=== PATIENT | female | born 1945 | race Caucasian/White ===

== ENCOUNTER 2016-08-14 07:37 | Inpatient (IN) ==
--- NOTE | 2016-08-14 08:03 | Emergency Department Note ---
Osmin Serrano Brooke, am scribing for, and in the presence of, Farhad Mccoy MD 07:58 . Nadine Serrano James D, MD, personally performed the services described in this documentation, ascribed by Louise Solorio in my presence, and it is both accurate and complete 802 . Arrival - Arrival Chief Complaint: Shortness of Breath Stated Complaint: SOB ED Nursing Triage Note: PT TRANSFERED FROM [facility] FOR EVALAUATION OF SOB. PT HAS DX NEW ONSET CHF. 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 Mode of Arrival: Stretcher Limitations: No Limitations Source: Patient, EMS, RN Notes Reviewed Time Seen by Provider: 08/14/16 07:51 - History of Present Illness HPI Narrative: Patient is a 71 year old female brought into the ED by EMS, From [facility] , for further evaluation of shortness of breath. Patient says the shortness of breath started last night. She says she had not gone to sleep, yet, when it started. She went to [facility] ED and says the doctor told her "he thought I might have CHF." Patient was given fluid medication and she says she now feels better. Patient also complains of having a cough and wheezing. She says she has had edema in her feet, with left being worse, for the past "two to three weeks." She had an UT "two to three years ago" and was treated by Dr. Ramirez. She does not have home oxygen. She also has PMHx of HTN, and dyslipidemia. Patient is a smoker and says she smokes a pack to two packs of cigarettes a day. Allergies/Adverse Reactions: Allergies Allergy/AdvReac Type Severity Reaction Status Date / Time levofloxacin Allergy ITCHING Unverified 08/14/16 07:44 Home Medications: Home Medications Medication Instructions Recorded Confirmed Type Aspirin Tab 325 mg PO DAILY 08/09/14 08/14/16 History Carvedilol [Coreg] 3.125 mg PO BID 08/09/14 08/14/16 History Clopidogrel [Plavix] 75 mg PO DAILY 08/09/14 08/14/16 History Furosemide Tab [Lasix Tab] 40 mg PO BID 08/09/14 08/14/16 History Lisinopril 10 mg PO DAILY 08/09/14 08/14/16 History Magnesium Oxide 400 mg PO BID 08/09/14 08/14/16 History Pantoprazole Tab [Protonix Tab] 40 mg PO DAILY 08/09/14 08/14/16 History Simvastatin 80 mg PO QPM 08/09/14 08/14/16 History metFORMIN [Glucophage] 1,000 mg PO BID 08/09/14 08/14/16 History Tramadol HCl/Acetaminophen 1 each PO Q8H PRN 08/14/16 08/14/16 History [Tramadol-Acetaminophn 37.5-325] Review of System - Review of System 12 point system: reviewed and no additional remarkable complaints except as stated - Review of System Constitutional: Absent: fever Respiratory: Present: cough, wheezing, other (shortness of breath). Absent: respiratory distress Cardiovascular: Present: edema (bilateral feet- left worse) Skin: Absent: rash Medical,Surgical,& Family Hx - Medical History Cardio: History of: CHF, Hypertension, UT Endocrine: History of: Dyslipidemia - Social History Smoking Status: Unknown if ever smoked Exam Vital Signs: Vital Signs Temperature 97.2 F L 08/14/16 08:00 Pulse Rate 72 08/14/16 08:30 Respiratory Rate 20 08/14/16 08:30 Blood Pressure 107/77 08/14/16 08:30 O2 Sat by Pulse Oximetry 97 08/14/16 08:30 GENERAL: This is a well-nourished well-developed white female in no apparent distress. VITAL SIGNS: Reviewed HEENT: Head is atraumatic and normocephalic. Pupils are equal round react to light. Extraocular movements are intact. Oropharynx is benign with moist mucous membranes. NECK: Neck is soft and supple without tenderness. There are no masses. There is no lymphadenopathy. LUNGS: Scattered expiratory and inspiratory wheezes. Chest rises symmetrically. There is no chest wall tenderness. CV: Heart is regular rate and rhythm without murmurs rubs or gallops. ABDOMEN: Abdomen is soft, nontender to palpation. There are no abdominal abnormal masses palpated. There is no organomegaly. Bowel sounds are present and active. SKIN: Skin is warm and dry. No rash. EXTREMITIES: Patient has full range of motion without tenderness. There is no pedal edema. NEUROLOGIC: Awake alert and oriented 4. Cranial nerves II through XII are grossly intact. Motor is 5 over 5 in all extremities bilaterally. Course - Consultations Consultation #1: Discussed with hospitalist. Patient will be admitted to their service. Time: 10:28 Results - Labs Lab Results: I have reviewed the patients labs Labs: Lab performed at [facility] reviewed by me. Laboratory Tests 08/14/16 08:48 Troponin I < 0.015 - EKG EKG results: interpreted by ERMD - Impressions EKG: Normal sinus rhythm with a rate of 76, nonspecific intraventricular conduction delay. Nonspecific ST-T wave changes. - Diagnostic Findings Procedure: Chest x-ray: image reviewed by me (Increased pulmonary markings bilaterally with fluid in the fissure.) Disposition Clinical Impression: Congestive heart failure, Nicotine addiction Case discussed with: patient Disposition: Still a Patient Condition: Stable Time of Disposition: 10:28
--- NOTE | 2016-08-14 09:16 | EKG Report ---
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
--- NOTE | 2016-08-14 09:19 | XRay Report ---
XR chest 2V Date: 08/14/2016 8:31 AM History: Shortness of breath Comparison: 09/13/2014 Technique: PA and lateral chest Findings: The heart is minimally enlarged with diffuse arterial calcifications. The lungs are overexpanded. Progressive parenchymal findings with Red B lines. Small pleural effusions with calcified granulomata. The pulmonary vasculature is more prominent with degenerative changes. Prior cholecystectomy. Impression: COPD with chronic scarring. Mild CHF with subsegmental atelectasis and small pleural effusions. Diffuse arterial calcifications. PROCEDURE INTERPRETED AT [facility] DEPARTMENT OF RADIOLOGY Final Report Signed by: Dr. Samantha Portillo
--- NOTE | 2016-08-14 11:02 | Hospitalist History & Physical ---
<Nikita Guerra - Last Filed: 08/14/16 11:29> Assessment and Plan (1) Congestive heart failure Status: Acute Assessment and plan: Chest x-ray suggested fluid accumulation; Lasix was given; her symptoms improved. We will obtain BNP now; may repeat lasix in AM if warranted. Current Visit: Yes Qualifiers: Congestive heart failure type: unspecified congestive heart failure type Congestive heart failure chronicity: acute Qualified Code(s): I50.9 - Heart failure, unspecified (2) Nicotine addiction Status: Acute Assessment and plan: The patient is a current smoker and verbalizes no intent to stop nor wants discuss it. Current Visit: Yes (3) Acute exacerbation of chronic obstructive airways disease Status: Acute Assessment and plan: We will start inhaled bronchodialators and systemic corticosteriods; monitor. Current Visit: No History of Present Illness Chief complaint: shortness of breath History of present illness: This is frail chronically-ill 71 year old female that presented to the ED at [facility] as a transfer from [facility] in [place] for evaluation of shortness of breath. The patient has a very complex medical history significant for congestive heart failure, chronic obstructive pulmonary disease, nicotine addiction, myocardial infarction, multiple cerebral vascular accidents, chronic urinary tract infection, GERD, asthma, and dyslipidemia. Apparently, the patient presented to the ED at [facility] for the above complaints on this morning which started on last night. She was given Lasix there and she reports that her symptoms improved. She reports that she was told that she "might have CHF" and was transferred here. In addition, the patient reported coughing, wheezing, and bilateral lower extremity edema for over one week. The patient reports that she is a current smoker of 2 packs of cigarettes daily with no plans to stop. Cardiac enzymes were obtained which reported troponin level of <0.015. Electrocardiogram reported normal sinus rhythm with a rate of 76, nonspecific intraventricular conduction delay and nonspecific ST-T wave changes. Chest radiograph revealed increased pulmonary markings bilaterally with fluid in the fissure. After brief discussion with both Dr. Mccoy and Dr. Murillo, the patient will be admitted to the hospitalist service for continuation of care. Home Medications Medication Instructions Recorded Confirmed Type Aspirin Tab 325 mg PO DAILY 08/09/14 08/14/16 History Carvedilol [Coreg] 3.125 mg PO BID 08/09/14 08/14/16 History Clopidogrel [Plavix] 75 mg PO DAILY 08/09/14 08/14/16 History Furosemide Tab [Lasix Tab] 40 mg PO BID 08/09/14 08/14/16 History Lisinopril 10 mg PO DAILY 08/09/14 08/14/16 History Magnesium Oxide 400 mg PO BID 08/09/14 08/14/16 History Pantoprazole Tab [Protonix Tab] 40 mg PO DAILY 08/09/14 08/14/16 History Simvastatin 80 mg PO QPM 08/09/14 08/14/16 History metFORMIN [Glucophage] 1,000 mg PO BID 08/09/14 08/14/16 History Tramadol HCl/Acetaminophen 1 each PO Q8H PRN 08/14/16 08/14/16 History [Tramadol-Acetaminophn 37.5-325] Allergies Allergy/AdvReac Type Severity Reaction Status Date / Time levofloxacin Allergy ITCHING Unverified 08/14/16 07:44 Medical,Surgical,& Family Hx - Medical History Cardio: History of: CHF, Hypertension, LA Neurology: History of: Cerebrovascular Accident (x3) Endocrine: History of: Diabetes Mellitus (NIDDM), Dyslipidemia Respiratory: History of: Asthma, COPD Genitourinary: History of: Recurring Urinary Tract Infections Gastrointestinal: History of: GERD - Surgical History Abdominal Surgeries: Surgical HX of: Cholecystectomy Reproductive Surgeries: Surgical HX of;: Dilation and Curettage, Hysterectomy Orthopedic Surgeries: Surgical HX of;: Orthopedic Surgery (right leg broken 1981 ) - Family History Family History: Reports;: Family Diabetes (son daughter), Family Hypertension ( daughter) - Social History Smoking Status: Unknown if ever smoked Exam - Constitutional Vitals: Period Temp Pulse Resp BP Sys/San Pulse Ox Last 24 Hr 97.1 F-97.2 F 67-78 16-20 95-107/58-77 90-98 <Jose Murillo - Last Filed: 08/14/16 12:00> Assessment and Plan (1) Acute exacerbation of chronic obstructive airways disease Status: Acute Assessment and plan: Impression: 1. COPD with acute exacerbation 2. Possible new onset congestive heart failure. Chest x-ray is consistent with this. She might have had a silent infarct, so we will monitor enzymes to rule this out. 3. Type II DM 4. Hypertension 5. Generalized atherosclerosis with prior LA and cerebral infarction. Plan: As above. Rule out LA with enzymes. Echocardiogram to assess left ventricular systolic function. She may need medication revision. Bronchodilators, oxygen, and IV steroids for the COPD. Will watch glucoses closely while she is on IV steroids. This note represents a shared visit with the nurse practitioner. I have seen the patient, and performed the critical elements of the history and examination as noted above. I agree with the assessment and plan, as entered by the nurse practitioner, except as described above. This note was completed using [employer] voice recognition software. There may be returned goods inspector errors as a result. Current Visit: No History of Present Illness History of present illness: Ms. Santos is a 71 year old female The patient reports a history of atherosclerosis manifest as several cerebral infarctions and a myocardial infarction. She says that she has not had any stents placed, and was never offered surgical intervention for her coronary disease. She also has been told that she has COPD, but is on no medication for this. She has been hypertensive and diabetic. She reports that her blood sugars at home are usually much less than 200. She says that she was in her usual state of poor health until the evening of admission, when she noted the sudden onset of dyspnea without any associated cough, sputum production, or chest discomfort. She presented to her local emergency department, and apparently a chest x-ray showed possible congestive heart failure. She was referred to us for cardiac evaluation. The patient specifically denies any prior diagnosis of congestive heart failure. She continues to smoke at least a pack of cigarettes every day. Exam - Constitutional Vitals: Period Temp Pulse Resp BP Sys/San Pulse Ox Last 24 Hr 97.1 F-97.2 F 67-78 16-20 95-107/51-77 90-98 Vital signs are described above. Heart is regular with distant tones. I do not hear murmur or gallop. Examination of lungs reveal a prolonged expiratory phase with expiratory wheezing. Abdomen is soft without any mass or tenderness. She is awake and conversant, and moves all 4 extremities.
[2016-08-14] MEDS ORDERED: DEXTROSE 50% 25 GM/50 ML VIAL IV PRN (13:16)
[2016-08-14] MEDS ORDERED: GLUCAGON 1 MG VIAL IM PRN (13:16)
[2016-08-14] MEDS: methylPREDNISolone SOD SUC 40 MG/1 ML VIAL IV SCH (13:56)
[2016-08-14] MEDS: ALBUTEROL/IPRATROPIUM 3 ML NEB RESP TX SCH ×2 (14:20→18:56)
[2016-08-14] MEDS: INSULIN REGULAR 100 UNIT/ML SUBCUT SCH ×2 (16:37→20:59)
[2016-08-14] MEDS: SIMVASTATIN 80 MG TABLET PO SCH (18:07)
[2016-08-14] MEDS: metFORMIN 500 MG TABLET PO SCH (20:59)
[2016-08-14] MEDS: CARVEDILOL 3.125 MG TABLET PO SCH (20:59)
[2016-08-14] MEDS: MAGNESIUM OXIDE 400 MG TABLET PO SCH (20:59)
[2016-08-15] MEDS: ALBUTEROL/IPRATROPIUM 3 ML NEB RESP TX SCH ×4 (00:57→18:47)
[2016-08-15] MEDS: methylPREDNISolone SOD SUC 40 MG/1 ML VIAL IV SCH ×2 (01:46→17:22)
[2016-08-15 06:22] LABS: Basophils % 0.1 % (0.0-0.8); Hematocrit 38.5 VOL% (35.7-47.0); Hemoglobin 12.6 GM/DL (12.0-16.0); Immature Granulocytes % 0.5 %; Immature Granulocytes Absolute 0.04 #; Lymphocytes # 0.9 10*3/uL (1.4-4.0); Mean Corpuscular HGB Conc 32.7 GM/DL (32-36); Mean Corpuscular Hemoglobin 30 PG (27-34); Mean Corpuscular Volume 90.6 FL (87-102); Mean Platelet Volume 10.2 FL (9.6-12.0); Monocytes # 0.1 10*3/uL (0.11-0.8); Monocytes % 1.3 % (1.7-12.7); Neutrophils # 6.8 10*3/uL (1.4-7.4); Neutrophils % 87.1 % (38.7-73.9); Platelet Count 233 T/CUMM (130-400); Red Blood Count 4.25 MC/CUMM (3.8-5.5); Red Cell Distribution Width 13.1 % (9.3-17.3); White Blood Count 7.9 T/CUMM (4-12)
--- NOTE | 2016-08-15 06:41 | XRay Report ---
XR chest 1V portable Indication: COPD Comparison: Chest x-ray 08/14/2016 Technique: Portable AP chest was performed. Findings: The heart size appears within normal limits. Pulmonary vasculature demonstrates no specific abnormality. Hilar structures demonstrate fairly symmetric appearance. The lungs have changed little in appearance since comparison study. A faint changed and may be some interval decrease in linear interstitial markings within the periphery of the lower lungs. Calcified granuloma is suggested within the left lung base and partially calcified left hilar lymph node is suggested. Bones and soft tissues demonstrate no evidence of acute pathology. Impression: 1. Little overall change in the chest is suggested. There may be interval partial clearing of interstitial pulmonary edema within the lung bases. 08/15/2016 6:37 AM PROCEDURE INTERPRETED AT [facility] DEPARTMENT OF RADIOLOGY Final Report Signed by: Dr. Gilmer Matias
[2016-08-15 06:53] LABS: Albumin 3.1 G/DL (3.4-5.0); Bilirubin,Total 0.6 MG/DL (0.2-1.0); Calcium 8.8 MG/DL (8.5-10.1); Magnesium 2.7 MG/DL (1.8-2.4); Osmolality,Calculated 288.8 MOS/KG (273-304); Phosphorous 3.4 MG/DL (2.5-4.9); Potassium 3.7 MMOL/L (3.5-5.1); Total Protein 6.6 G/DL (6.4-8.3)
[2016-08-15] MEDS: CARVEDILOL 3.125 MG TABLET PO SCH ×2 (08:52→20:49)
[2016-08-15] MEDS: MAGNESIUM OXIDE 400 MG TABLET PO SCH ×2 (08:52→20:49)
[2016-08-15] MEDS: PANTOPRAZOLE 40 MG TABLET PO SCH (08:52)
[2016-08-15] MEDS: ASPIRIN 325 MG TABLET PO SCH (08:52)
[2016-08-15] MEDS: INSULIN REGULAR 100 UNIT/ML SUBCUT SCH ×4 (08:52→22:33)
[2016-08-15] MEDS: LISINOPRIL 10 MG TABLET PO SCH (08:52)
[2016-08-15] MEDS: metFORMIN 500 MG TABLET PO SCH ×2 (08:52→20:49)
[2016-08-15] MEDS: CLOPIDOGREL 75 MG TABLET PO SCH (08:52)
--- NOTE | 2016-08-15 16:01 | ECHO Report ---
Beck Santosis 08/15/2016 Exam Date: 09:00 Referring Physician: Rosa Degroot Technologist: RICKI Age: 71 Ht (in): 63 Wt (lb): 147 FExam Location: [facility] Gender: Echo [id number]: acute CHF, nicotine addition, acute Indications:excerbation Copd, SOB BP: 121 / 63 HR: 79 SinusRhythm: averageTechnical Quality: IMPRESSIONS Patient ejection fraction approximately 55%. There is moderate to severe concentric left ventricular hypertrophy. Diastolic parameters are most consistent with grade 2 diastolic dysfunction or pseudonormalization. There is no regional wall motion abnormality. Tricuspid regurgitation velocities suggest a RVSP of 43 mmHg plus the right atrial pressure. There is mitral annular calcification and calcification of the subvalvular apparatus. MEASUREMENTS (Male / Female) Normal Values 2D ECHO LV Diastolic Diameter PLAX 4.2 cm 4.2 - 5.9 / 3.9 - 5.3 cm LV Systolic Diameter PLAX 2.3 cm LV Fractional Shortening PLAX 44.2 % IVS Diastolic Thickness 1.9 cm 0.6 - 1.0 / 0.6 - 0.9 cm LVPW Diastolic Thickness 1.5 cm 0.6 - 1.0 / 0.6 - 0.9 cm RV Internal Dim ED PLAX 2.3 cm Aortic Root Diameter 2.6 cm LA Systolic Diameter LX 3.7 cm 3.0 - 4.0 / 2.7 - 3.8 cm DOPPLER TR Peak Velocity 329.0 cm/s TR Peak Gradient 43.3 mmHg FINDINGS Left Ventricle Patient ejection fraction approximately 55%. There is moderate to severe concentric left ventricular hypertrophy. Diastolic parameters are most consistent with grade 2 diastolic dysfunction or pseudonormalization. There is no regional wall motion abnormality. Right Ventricle Mildly increased right ventricular size. Right Atrium The right atrium is mildly enlarged. Left Atrium The left atrium is mildly enlarged. Mitral Valve Mild mitral valve sclerosis. Mild mitral valve regurgitation. There is mitral annular calcification and calcification of the subvalvular apparatus. Aortic Valve Mild aortic valve sclerosis. Trace aortic valve regurgitation. Tricuspid Valve Morphologically normal tricuspid valve. Mild tricuspid valve regurgitation. Tricuspid regurgitation velocities suggest a RVSP of 43 mmHg plus the right atrial pressure. Pulmonic Valve Morphologically normal pulmonic valve. Trace pulmonary valve regurgitation. Pericardium No pericardial effusion. Aorta Normal size aortic root and proximal ascending aorta. Nimisha Curry (Electronically Signed) 15 Aug 2016 16:00Final Date:
[2016-08-15] MEDS: SIMVASTATIN 80 MG TABLET PO SCH (20:49)
[2016-08-16] MEDS: ALBUTEROL/IPRATROPIUM 3 ML NEB RESP TX SCH ×3 (00:54→13:16)
--- NOTE | 2016-08-16 06:49 | Physician Query Form ---
CLICK EDIT DOCUMENT TO SELECT QUERY ANSWER --> OK --> SIGN Salima Matias RN, CCDS Certified Clinical Basic Acoustic Analyst W) [phone] (f) [phone] [email or web address] PROVIDERS: Make your selection(s) from the choices in EACH section by typing an "x" and enter comments in the comment section. Please use your independent medical judgment in providing your response. This request does not imply that any particular answer is desired or expected. CLINICAL INDICATORS: (Providers should not edit this section) The medical record indicates that the patient was admitted with CHF, BNP of 478# , EF of 55% and the patient was treated with Coreg. ER note: " Patient was given fluid medication and she says she now feels better" Please provide further specificity regarding CHF. ACUITY: ( ) Acute ( ) Chronic ( x) Acute on Chronic ( ) Clinically unable to determine TYPE: ( ) Systolic (HFrEF - heart failure with reduced systolic function/EF) ( x) Diastolic (HFpEF - heart failure with preserved systolic function/EF) ( ) Combined Systolic/Diastolic ( ) Other, please specify: ( ) Clinically unable to determine ( ) The patient does NOT have CHF COMMENTS: PLEASE ALSO DOCUMENT RESPONSE IN PROGRESS NOTES AND/OR DISCHARGE SUMMARY Use of terms such as suspected, likely, or probable (associated with a specific diagnosis that is being evaluated, monitored, or treated as if it exists) are acceptable and can be restated in the discharge summary if not ruled out. MTDD
--- NOTE | 2016-08-16 09:29 | Hospitalist Progress Note ---
Assessment and Plan (1) Acute exacerbation of chronic obstructive airways disease Status: Acute Assessment and plan: Impression: 1. COPD with acute exacerbation 2. Possible new onset congestive heart failure. We are waiting on echocardiogram results 3. Type II DM 4. Hypertension 5. Generalized atherosclerosis with prior ME and cerebral infarction. Plan: Await echocardiogram, and continue current care of chronic problems This note was completed using [employer] voice recognition software. There may be bacteriology research assistant errors as a result. Current Visit: No Hospitalist: Subjective Interval history: This visit was performed on 08/15/16 at 10:15 AM. Follow-up COPD or CHF. The patient thinks her dyspnea may be a little bit better. We are still waiting on the echocardiogram report. She thinks that the test has been done, but she is not sure. She slept well. She does not have any worsening dyspnea or any significant chest discomfort. Exam - Constitutional Vitals: Period Temp Pulse Resp BP Sys/San Pulse Ox Last 24 Hr 97.9 F-98.5 F 70-97 16-20 128-161/54-72 91-99 Heart is regular with no murmur or gallop. Lungs have a few expiratory wheezes. She is awake and alert Results - Labs CBC & BMP: 08/15/16 05:07 08/15/16 05:07
[2016-08-16] MEDS: INSULIN REGULAR 100 UNIT/ML SUBCUT SCH ×2 (09:41→12:58)
[2016-08-16] MEDS: PANTOPRAZOLE 40 MG TABLET PO SCH (09:43)
[2016-08-16] MEDS: methylPREDNISolone SOD SUC 40 MG/1 ML VIAL IV SCH (09:43)
[2016-08-16] MEDS: CLOPIDOGREL 75 MG TABLET PO SCH (09:44)
[2016-08-16] MEDS: LISINOPRIL 10 MG TABLET PO SCH (09:44)
[2016-08-16] MEDS: metFORMIN 500 MG TABLET PO SCH (09:45)
[2016-08-16] MEDS: CARVEDILOL 3.125 MG TABLET PO SCH (09:45)
[2016-08-16] MEDS: MAGNESIUM OXIDE 400 MG TABLET PO SCH (09:45)
[2016-08-16] MEDS: ASPIRIN 325 MG TABLET PO SCH (09:46)
--- NOTE | 2016-08-16 10:33 | Discharge Summary ---
Hospital Course - Hospital Course Hospital Course: Discharge diagnosis: 1. Acute on chronic diastolic congestive heart failure 2. COPD with acute exacerbation 3. Type II DM The patient presented to the hospital for evaluation of dyspnea. She had an echocardiogram that showed evidence of diastolic dysfunction with a normal ejection fraction. She was treated with bronchodilators and steroids for a COPD exacerbation. Over the next day or so, she improved, and is now ready for discharge. Medication reconciliation has been performed. ADA diet. Activity as tolerated. Follow-up with local physician. Diagnosis - Discharge Diagnosis (1) Acute exacerbation of chronic obstructive airways disease Status: Acute Discharge Plan - Discharge Data Disposition: Disch To Home/Self Care Condition at Discharge: Stable Discharge Diet: diabetic diet Activity: resume usual activities as tolerated Hygiene: no restrictions Weight Bearing at Discharge: full weight bearing Driving: no restrictions - Discharge Medications Continue Clopidogrel [Plavix] 75 mg PO DAILY Carvedilol [Coreg] 3.125 mg PO BID Aspirin Tab 325 mg PO DAILY Pantoprazole Tab [Protonix Tab] 40 mg PO DAILY Furosemide Tab [Lasix Tab] 40 mg PO BID metFORMIN [Glucophage] 1,000 mg PO BID Magnesium Oxide 400 mg PO BID Simvastatin 80 mg PO QPM Lisinopril 5 mg PO DAILY Tramadol HCl/Acetaminophen [Tramadol-Acetaminophn 37.5-325] 1 each PO Q8H PRN PRN Reason: Pain - Follow Up or Referral - Forms/Instructions Exam - Constitutional Vitals: Period Temp Pulse Resp BP Sys/San Pulse Ox Last 24 Hr 97.9 F-98.5 F 70-97 16-20 128-161/54-72 91-99 Heart is regular with no murmur or gallop. Lungs are completely clear with no rales or wheezes. Abdomen is soft without mass. She is awake and alert Discharge Results Labs on day of discharge: Labs from last 24 hours 08/16/16 08/15/16 08/15/16 07:31 22:25 17:06 POC Glucose 123 H 177 H 216 H 08/15/16 10:52 POC Glucose 150 H DS: Provider Date of admission: 08/14/16 10:28 Primary care physician: . No PCP Attending physician on admission: Jose Murillo MD Discharging clinician: Jose Murillo MD Expected date of discharge: 08/16/16
[2016-08-16 11:20] VITALS: BP 133/64
== END 2016-08-16 13:45 | disposition home or self-care (01) | DRG 190 ==
LOC: EDUNIT# → EDSEX → N.ED 07:37 → N.EDINP 10:28 → N.2E 10:52
PROVIDERS: ADMIT Internal Medicine Geriatric Medicine; ATTEND Internal Medicine Geriatric Medicine

== ENCOUNTER 2019-02-16 17:13 | Inpatient (IN) ==
[2019-02-16] MEDS ORDERED: ALBUTEROL 2.5 MG/3 ML NEB RESP TX PRN (21:05)
[2019-02-16] MEDS ORDERED: ACETAMINOPHEN 325 MG TABLET PO PRN (21:21)
[2019-02-16] MEDS ORDERED: ONDANSETRON 4 MG/2 ML VIAL IV PRN (21:21)
[2019-02-16] MEDS ORDERED: DOCUSATE SODIUM 100 MG CAPSULE PO PRN (21:21)
[2019-02-16] MEDS ORDERED: GLUCAGON 1 MG VIAL IM PRN (21:31)
[2019-02-16] MEDS ORDERED: DEXTROSE 50% 25 GM/50 ML VIAL IV PRN (21:31)
[2019-02-16] MEDS ORDERED: MAGNESIUM SULF RIDER 2 GM in PREMIX 1 EACH IV PRN (21:46)
[2019-02-16] MEDS ORDERED: MAGNESIUM SULF RIDER 4 GM in PREMIX 1 EACH IV PRN (21:46)
[2019-02-16] MEDS: ATORVASTATIN 40 MG TABLET PO SCH (22:31)
[2019-02-16] MEDS: POTASSIUM CHLORIDE 10 MEQ TABLET PO SCH (22:32)
[2019-02-16] MEDS: MAGNESIUM OXIDE 400 MG TABLET PO SCH (22:32)
[2019-02-16] MEDS: guaiFENesin/DM ER 600-30 MG TABLET PO SCH (22:32)
[2019-02-16] MEDS: AZITHROMYCIN INJ 500 MG in SODIUM CHLORIDE 0.9% 250 ML IV SCH (22:34)
[2019-02-16] MEDS: cefTRIAXone 1,000 MG in SYRINGE 1 EACH IV SCH (22:58)
[2019-02-17] MEDS: ALBUTEROL/IPRATROPIUM 3 ML NEB RESP TX SCH ×4 (00:16→20:13)
[2019-02-17 05:31] LABS: Basophils % 0.2 % (0.0-0.8); Eosinophils # 0.1 10*3/uL (0.0-0.87); Eosinophils % 0.6 % (0.00-10.9); Hematocrit 33.4 VOL% (35.7-47.0); Hemoglobin 10.5 GM/DL (12.0-16.0); Immature Granulocytes % 0.2 %; Immature Granulocytes Absolute 0.02 #; Lymphocytes # 1.6 10*3/uL (1.4-4.0); Lymphocytes % 19.8 % (21.3-54.2); Mean Corpuscular HGB Conc 31.4 GM/DL (32-36); Mean Corpuscular Volume 94.1 FL (87-102); Mean Platelet Volume 10.5 FL (9.6-12.0); Monocytes % 8.8 % (1.7-12.7); Neutrophils % 70.4 % (38.7-73.9); Platelet Count 200 T/CUMM (130-400); Red Blood Count 3.55 MC/CUMM (3.8-5.5); Red Cell Distribution Width 13.2 % (9.3-17.3)
[2019-02-17 05:48] LABS: Albumin 2.4 G/DL (3.4-5.0); Bilirubin,Total 0.6 MG/DL (0.2-1.0); Calcium 7.8 MG/DL (8.5-10.1); Osmolality,Calculated 282.1 MOS/KG (273-304); Risk Ratio 2.22; Total Protein 5.7 G/DL (6.4-8.3); VLDL CHOLESTEROL 14.6 MG/DL
[2019-02-17 05:50] LABS: Hypochromasia 1+; Ovalocytes Slight; Platelet Estimate Adequate
[2019-02-17] MEDS: INSULIN REGULAR 100 UNIT/ML SUBCUT SCH ×4 (08:37→23:46)
[2019-02-17] MEDS: CLOPIDOGREL 75 MG TABLET PO SCH (08:39)
[2019-02-17] MEDS: guaiFENesin/DM ER 600-30 MG TABLET PO SCH ×2 (08:39→22:03)
[2019-02-17] MEDS: POTASSIUM CHLORIDE 10 MEQ TABLET PO SCH ×2 (08:39→22:03)
[2019-02-17] MEDS: ENOXAPARIN 40 MG/0.4 ML SYRINGE SUBCUT SCH (08:39)
[2019-02-17] MEDS: MAGNESIUM OXIDE 400 MG TABLET PO SCH ×2 (08:39→22:02)
[2019-02-17] MEDS: PANTOPRAZOLE 40 MG TABLET PO SCH (08:39)
[2019-02-17] MEDS: ASPIRIN 325 MG TABLET PO SCH (08:39)
[2019-02-17] MEDS: NICOTINE 21 MG/24 HR PATCH TRANSDERM PRN (20:26)
[2019-02-17] MEDS: cefTRIAXone 1,000 MG in SYRINGE 1 EACH IV SCH (22:03)
[2019-02-17] MEDS: ATORVASTATIN 40 MG TABLET PO SCH (22:03)
[2019-02-17] MEDS: AZITHROMYCIN INJ 500 MG in SODIUM CHLORIDE 0.9% 250 ML IV SCH (22:04)
[2019-02-18] MEDS: ALBUTEROL/IPRATROPIUM 3 ML NEB RESP TX SCH ×4 (01:16→19:20)
[2019-02-18 05:33] LABS: Basophils % 0.3 % (0.0-0.8); Eosinophils % 0.3 % (0.00-10.9); Hematocrit 33.7 VOL% (35.7-47.0); Hemoglobin 10.4 GM/DL (12.0-16.0); Immature Granulocytes % 0.3 %; Immature Granulocytes Absolute 0.02 #; Lymphocytes # 1.5 10*3/uL (1.4-4.0); Lymphocytes % 21.9 % (21.3-54.2); Mean Corpuscular HGB Conc 30.9 GM/DL (32-36); Mean Corpuscular Volume 95.7 FL (87-102); Mean Platelet Volume 10.1 FL (9.6-12.0); Monocytes % 8.6 % (1.7-12.7); Neutrophils % 68.6 % (38.7-73.9); Platelet Count 227 T/CUMM (130-400); Red Blood Count 3.52 MC/CUMM (3.8-5.5); Red Cell Distribution Width 13.2 % (9.3-17.3); White Blood Count 6.7 T/CUMM (4-12)
[2019-02-18 05:43] LABS: Calcium 7.8 MG/DL (8.5-10.1); Osmolality,Calculated 289.7 MOS/KG (273-304)
[2019-02-18] MEDS: INSULIN REGULAR 100 UNIT/ML SUBCUT SCH ×4 (08:32→20:44)
[2019-02-18] MEDS: ASPIRIN 325 MG TABLET PO SCH (08:33)
[2019-02-18] MEDS: MAGNESIUM OXIDE 400 MG TABLET PO SCH ×2 (08:33→20:42)
[2019-02-18] MEDS: CLOPIDOGREL 75 MG TABLET PO SCH (08:33)
[2019-02-18] MEDS: PANTOPRAZOLE 40 MG TABLET PO SCH (08:33)
[2019-02-18] MEDS: guaiFENesin/DM ER 600-30 MG TABLET PO SCH ×2 (08:33→20:42)
[2019-02-18] MEDS: POTASSIUM CHLORIDE 10 MEQ TABLET PO SCH ×2 (08:33→20:42)
[2019-02-18] MEDS: ENOXAPARIN 40 MG/0.4 ML SYRINGE SUBCUT SCH (08:33)
[2019-02-18] MEDS: NICOTINE 21 MG/24 HR PATCH TRANSDERM PRN (20:41)
[2019-02-18] MEDS: ATORVASTATIN 40 MG TABLET PO SCH (20:47)
[2019-02-18] MEDS: cefTRIAXone 1,000 MG in SYRINGE 1 EACH IV SCH (23:32)
[2019-02-19] MEDS: ALBUTEROL/IPRATROPIUM 3 ML NEB RESP TX SCH ×4 (00:05→19:42)
[2019-02-19] MEDS: BENZONATATE 100 MG CAPSULE PO PRN ×2 (00:33→18:42)
[2019-02-19] MEDS: INSULIN REGULAR 100 UNIT/ML SUBCUT SCH ×4 (07:52→21:18)
[2019-02-19] MEDS: MAGNESIUM OXIDE 400 MG TABLET PO SCH ×2 (09:30→21:18)
[2019-02-19] MEDS: ASPIRIN 325 MG TABLET PO SCH (09:30)
[2019-02-19] MEDS: PANTOPRAZOLE 40 MG TABLET PO SCH (09:30)
[2019-02-19] MEDS: POTASSIUM CHLORIDE 10 MEQ TABLET PO SCH ×2 (09:31→21:18)
[2019-02-19] MEDS: CLOPIDOGREL 75 MG TABLET PO SCH (09:31)
[2019-02-19] MEDS: guaiFENesin/DM ER 600-30 MG TABLET PO SCH ×2 (09:31→21:18)
[2019-02-19] MEDS: ENOXAPARIN 40 MG/0.4 ML SYRINGE SUBCUT SCH (09:31)
[2019-02-19] MEDS: cefTRIAXone 1,000 MG in SYRINGE 1 EACH IV SCH (21:18)
[2019-02-19] MEDS: ATORVASTATIN 40 MG TABLET PO SCH (21:18)
[2019-02-20] MEDS: ALBUTEROL/IPRATROPIUM 3 ML NEB RESP TX SCH ×2 (00:33→07:51)
[2019-02-20] MEDS: INSULIN REGULAR 100 UNIT/ML SUBCUT SCH ×2 (08:26→12:48)
[2019-02-20] MEDS: MAGNESIUM OXIDE 400 MG TABLET PO SCH (08:46)
[2019-02-20] MEDS: ENOXAPARIN 40 MG/0.4 ML SYRINGE SUBCUT SCH (08:46)
[2019-02-20] MEDS: PANTOPRAZOLE 40 MG TABLET PO SCH (08:46)
[2019-02-20] MEDS: POTASSIUM CHLORIDE 10 MEQ TABLET PO SCH (08:46)
[2019-02-20] MEDS: CLOPIDOGREL 75 MG TABLET PO SCH (08:46)
[2019-02-20] MEDS: NICOTINE 21 MG/24 HR PATCH TRANSDERM PRN (08:46)
[2019-02-20] MEDS: ASPIRIN 325 MG TABLET PO SCH (08:46)
[2019-02-20] MEDS: guaiFENesin/DM ER 600-30 MG TABLET PO SCH (08:46)
[2019-02-20 12:26] VITALS: BP 85/60
== END 2019-02-20 13:36 | disposition home or self-care (01) | DRG 194 ==
LOC: SUATTDRO 19:16 → SUPCPDRO 19:16 → N.2E 19:16
PROVIDERS: ADMIT Internal Medicine; ATTEND Internal Medicine